=== PATIENT | female | born 1980 | race American Indian/Alaskan Native ===

== ENCOUNTER 2018-02-20 08:30 | Emergency (ER) | payer SELFPAY ==
[2018-02-20 08:33] VITALS: BP 127/75; PULSE 90; RESP 16; TEMP 37; O2SAT 99
--- NOTE | 2018-02-20 08:49 | W.ED.GENAD ---
Discharge Plan Disposition Patient Disposition: HOME Condition: Good Discharge Details Chief Complaint: Abd Prob Clinical Impression: URI (upper respiratory infection) Primary Care Provider: None,None ED Provider: Lee Shay Home Meds and New Rx's Prescriptions: No Action No Known Home Meds RF: 0 Discharge Instructions Instructions: Upper Respiratory Infection (ED) Stand Alone Forms: Work Release Referrals: [facility] [place] [facility] [Outside] - Return if symptoms worsen Discharge Data Discharge Date/Time-TO BE ENTERED AT DEPARTURE: 02/20/18 09:00 Medical Decision Making Offered to do chest x-ray and flu swab and she declined. Advised to continue rest and fluids and return if symptoms worsen otherwise with pcp. Return to work note provided to return on 02/23/18. HPI General Mode of arrival: ambulatory. Date/Time Provider Initiated Documentation: 02/20/18 08:35. Limitations to Documentation: no limitations. Information obtained by: patient. History of Present Illness 37 year old F presents to the emergency department with the chief complaint of cough and diarrhea, HPI Narrative: 37 y/o female here with c/o cough, diarrhea, and sinus congestion. She is a smoker but unable to smoke during this illness. She tells me she has a cold and treating with homeopathic medications. She also c/o lower abdominal pain with the diarrhea. Denies back pain, N/V or fever. She works in the kitchen at [employer]. She missed work yesterday and her boss told her to come in and get a work note. She explains that she typically does not like coming to the doctor but needs a work note. Transportation is an issue. Her sister brought her in on her way out of town to return back to [place]. She declines any testing to confirm the flu or any other possible cause of her illness. She does need a work note though. Related Data Home Medications Medication Instructions Recorded Confirmed Unknown [No Known Home Meds] 02/20/18 02/20/18 Allergies Allergy/AdvReac Type Severity Reaction Status Date / Time shrimp Allergy Unverified 02/20/18 08:39 something for mental health Allergy Itching Uncoded 02/20/18 08:39 General Stated Complaint: Abd Prob CYRUS: 4 Review of Systems Eyes Reports system reviewed and no additional complaints, except as docu ENT Reports nasal congestion, Reports nasal discharge, Reports sinus pressure and Reports sore throat Cardiovascular Reports system reviewed and no additional complaints, except as docu Respiratory Reports cough Gastrointestinal Reports abdominal pain and Reports diarrhea Genitourinary Reports system reviewed and no additional complaints, except as [facility] Musculoskeletal Reports system reviewed and no additional complaints, except as [facility] Integumentary/Breasts Reports system reviewed and no additional complaints, except as docu PFSH Social History Smoking/Tobacco Use Status: Current every day Social History Smoking/Tobacco Use Status: Current every day Exam Const General: cooperative, comfortable and no acute distress Nutritional Appearance: overweight Orientation: alert, awake and oriented x3 HENMT Head: atraumatic Ears: hearing grossly normal bilaterally, external ears normal, TM normal on the right and TM abnormal (left) erythematous General nose exam: external nose normal and nares normal Mouth: oral mucosae normal, lip normal and tongue normal Teeth and gingiva: dentition normal Throat: posterior oropharynx abnormal erythema and exudates Eyes General: appearance normal, both eyes and all related structures Neck Neck: normal visual inspection, full ROM and no lymphadenopathy Resp Effort & Inspection: normal respiratory effort Auscultation: clear to auscultation bilaterally Cardio Rate: regular rate Rhythm: regular rhythm Heart Sounds: S1 normal, S2 normal and no murmurs GI Palpation: soft, no guarding and tender in the LLQ, in the RLQ and in the LUQ; not in the epigastrum, not at McBurney's point, not suprapubicly, Diana's sign negative and with no rebound tenderness Auscultation: normoactive bowel sounds Skin General skin exam: no rashes or lesions noted Neuro General: alert, awake, oriented x3 and gait normal Extrem General: full ROM and normal capillary refill Course Vital Signs Temperature 37 C 02/20/18 08:33 Pulse 90 02/20/18 08:33 Respiratory Rate 16 02/20/18 08:33 Blood Pressure 127/75 02/20/18 08:33 Pulse Oximetry 99 02/20/18 08:33 Temperature 37 C 02/20/18 08:33 Temperature Source Temporal Artery Scan 02/20/18 08:33 Pulse 90 02/20/18 08:33 Respiratory Rate 16 02/20/18 08:33 Respiratory Effort 02/20/18 08:40 Blood Pressure 127/75 02/20/18 08:33 Blood Pressure Position Sitting 02/20/18 08:33 Pulse Oximetry 99 02/20/18 08:33 Oxygen Delivery Method Room Air 02/20/18 08:33 Oxygen Flow Rate 0 02/20/18 08:33 Pain Level 0 02/20/18 08:33 Comment 02/20/18 08:33
--- NOTE | 2018-02-20 08:57 | ED.GENADUL_ITS ---
Discharge Plan Disposition Patient Disposition: HOME Condition: Good Discharge Details Chief Complaint: Abd Prob Clinical Impression: URI (upper respiratory infection) Primary Care Provider: None,None ED Provider: Lee Shay Home Meds and New Rx's Prescriptions: No Action No Known Home Meds RF: 0 Discharge Instructions Instructions: Upper Respiratory Infection (ED) Stand Alone Forms: Work Release Referrals: [facility] Emergency Dept. [Outside] - Return if symptoms worsen Discharge Data Discharge Date/Time-TO BE ENTERED AT DEPARTURE: 02/20/18 09:00 Medical Decision Making Offered to do chest x-ray and flu swab and she declined. Advised to continue rest and fluids and return if symptoms worsen otherwise with pcp. Return to work note provided to return on 02/23/18. HPI General Mode of arrival: ambulatory . Date/Time Provider Initiated Documentation: 02/20/18 08:35 . Limitations to Documentation: no limitations . Information obtained by: patient . History of Present Illness 37 year old F presents to the emergency department with the chief complaint of cough and diarrhea, HPI Narrative: 37 y/o female here with c/o cough, diarrhea, and sinus congestion. She is a smoker but unable to smoke during this illness. She tells me she has a cold and treating with homeopathic medications. She also c/o lower abdominal pain with the diarrhea. Denies back pain, N/V or fever. 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 She explains that she typically does not like coming to the doctor but needs a work note. Transportation is an issue. Her sister brought her in on her way out of town to return back to [place]. She declines any testing to confirm the flu or any other possible cause of her illness. She does need a work note though. Related Data Home Medications Medication Instructions Recorded Confirmed Unknown [No Known Home Meds] 02/20/18 02/20/18 Allergies Allergy/AdvReac Type Severity Reaction Status Date / Time shrimp Allergy Unverified 02/20/18 08:39 something for mental health Allergy Itching Uncoded 02/20/18 08:39 General Stated Complaint: Abd Prob CYRUS: 4 Review of Systems Eyes Reports system reviewed and no additional complaints, except as docu ENT Reports nasal congestion, Reports nasal discharge, Reports sinus pressure and Reports sore throat Cardiovascular Reports system reviewed and no additional complaints, except as docu Respiratory Reports cough Gastrointestinal Reports abdominal pain and Reports diarrhea Genitourinary Reports system reviewed and no additional complaints, except as [facility] Musculoskeletal Reports system reviewed and no additional complaints, except as [facility] Integumentary/Breasts Reports system reviewed and no additional complaints, except as docu PFSH Social History Smoking/Tobacco Use Status: Current every day Social History Smoking/Tobacco Use Status: Current every day Exam Const General: cooperative, comfortable and no acute distress Nutritional Appearance: overweight Orientation: alert, awake and oriented x3 HENMT Head: atraumatic Ears: hearing grossly normal bilaterally, external ears normal, TM normal on the right and TM abnormal (left) erythematous General nose exam: external nose normal and nares normal Mouth: oral mucosae normal, lip normal and tongue normal Teeth and gingiva: dentition normal Throat: posterior oropharynx abnormal erythema and exudates Eyes General: appearance normal, both eyes and all related structures Neck Neck: normal visual inspection, full ROM and no lymphadenopathy Resp Effort & Inspection: normal respiratory effort Auscultation: clear to auscultation bilaterally Cardio Rate: regular rate Rhythm: regular rhythm Heart Sounds: S1 normal, S2 normal and no murmurs GI Palpation: soft, no guarding and tender in the LLQ, in the RLQ and in the LUQ; not in the epigastrum, not at McBurney's point, not suprapubicly, Diana's sign negative and with no rebound tenderness Auscultation: normoactive bowel sounds Skin General skin exam: no rashes or lesions noted Neuro General: alert, awake, oriented x3 and gait normal Extrem General: full ROM and normal capillary refill Course Vital Signs Temperature 37 C 02/20/18 08:33 Pulse 90 02/20/18 08:33 Respiratory Rate 16 02/20/18 08:33 Blood Pressure 127/75 02/20/18 08:33 Pulse Oximetry 99 02/20/18 08:33 Temperature 37 C 02/20/18 08:33 Temperature Source Temporal Artery Scan 02/20/18 08:33 Pulse 90 02/20/18 08:33 Respiratory Rate 16 02/20/18 08:33 Respiratory Effort 02/20/18 08:40 Blood Pressure 127/75 02/20/18 08:33 Blood Pressure Position Sitting 02/20/18 08:33 Pulse Oximetry 99 02/20/18 08:33 Oxygen Delivery Method Room Air 02/20/18 08:33 Oxygen Flow Rate 0 02/20/18 08:33 Pain Level 0 02/20/18 08:33 Comment 02/20/18 08:33
== END 2018-02-20 09:00 | disposition home or self-care (01) ==
LOC: ER 09:10
PROVIDERS: Emergency Provider Nurse Practitioner Family
DX: J06.9 Acute upper respiratory infection, unspecified (principal); R19.7 Diarrhea, unspecified; F17.210 Nicotine dependence, cigarettes, uncomplicated
CPT/HCPCS: 99282

== ENCOUNTER 2018-03-24 09:13 | Emergency (ER) | payer SELFPAY ==
[2018-03-24 09:24] VITALS: BP 115/76; PULSE 82; RESP 16; TEMP 36.6; O2SAT 98
--- NOTE | 2018-03-24 09:43 | DI.RAD_ITS ---
SYMPTOMS/DIAGNOSIS: COUGH FOR 1 MONTH, PRODUCTIVE YELLOW SPUTUM PA AND LATERAL CHEST: The cardiac and mediastinal contours have a normal appearance. The lungs are well inflated and clear. No infiltrate or effusion is seen. IMPRESSION: Negative chest x-ray.
[2018-03-24 09:59] LABS: Bilirubin Negative (Negative); Blood Negative (Negative); Clarity Clear; Glucose Negative (Negative); Ketones Negative (Negative); Leukocyte Esterase Negative (Negative); Nitrite Negative (Negative); Urobilinogen 0.2 EU/dL (Up TO 0.2); pH 6.5 (5-8)
--- NOTE | 2018-03-24 09:59 | W.ED.GENAD ---
Discharge Plan Disposition Patient Disposition: HOME Condition: Good Discharge Details Chief Complaint: Nausea/Vomit/Diar Clinical Impression: Bronchitis Primary Care Provider: None,None ED Provider: Wally Mccray Home Meds and New Rx's Prescriptions: New prednisone 50 MG tablet 50 mg PO DAILY Qty: 5 RF: 0 azithromycin 250 mg tablet See Rx Instructions .ROUTE .COMPLEX Qty: 6 RF: 0 albuterol sulfate 90 mcg/actuation HFA aerosol inhaler 1 puff IH Q6H PRN (Reason: shortness of breath or wheezing) Qty: 8 RF: 0 Discharge Instructions Instructions: Acute Bronchitis (ED) Additional Instructions: Please take medications as directed. If you notice any worsening of your symptoms, or any new symptoms such as vomiting, diarrhea, fever, chills, shortness of breath, chest pain, numbness, weakness, or fainting , please return immediately to the emergency department for reevaluation. Please follow up with your primary care provider as soon as possible for reassessment and reevaluation. As always, it was a pleasure participating in your medical care today. Medical Decision Making This is a pleasant 37-year-old female who presents for evaluation of cough with on and off symptoms for the last month with some associated diarrhea, and productive yellow sputum. She denies fever but does admit to chills. She still smokes. Lung sounds demonstrate wheeze on the left. The longevity of the patient's symptoms, I am concerned for potential pneumonia we will get a chest x-ray for further evaluation. No severe focal pneumonia on chest x-ray. Patient will be discharged home with steroids, albuterol, and antibiotics for chronic recurrent bronchitis. I have extensively reviewed the treatment plan and discharge instructions with the patient. I have addressed all patient concerns at this time. The patient was made aware of what symptoms to monitor for that would warrant a return to the emergency department. Discussed the plan with the patient, they demonstrate verbal understanding and agreement with our assessment and plan at this time. HPI General Date/Time Provider Initiated Documentation: 03/24/18 09:40. HPI Narrative: This is a 37-year-old female who presents today for evaluation of cough, congestion, and occasional loose stool. Patient states that for the last month she has had on and off return of the symptoms. She has associated yellow sputum with her cough. Her diarrhea is nonbloody and only occasional. She denies any dark tarry or melanotic stool. She denies any hematemesis, hematochezia. Patient is continuing to smoke. She denies any chest pain or shortness of breath. She is a lesbian she denies any intercourse or oral contraceptive use. Patient denies any contact with water towers or air conditioning units. She has no other associated complaints at this time. Patient denies any other modifying factors. She has no other complaints at this time. Related Data Home Medications Medication Instructions Recorded Confirmed albuterol sulfate 1 puff IH Q6H PRN #8 gm 03/24/18 azithromycin See Rx Instructions .ROUTE 03/24/18 .COMPLEX #6 tab prednisone 50 mg PO DAILY #5 tab 03/24/18 Previous Rx's Medication Instructions Recorded albuterol sulfate 1 puff IH Q6H PRN #8 gm 03/24/18 azithromycin See Rx Instructions .ROUTE 03/24/18 .COMPLEX #6 tab prednisone 50 mg PO DAILY #5 tab 03/24/18 Allergies Allergy/AdvReac Type Severity Reaction Status Date / Time shrimp Allergy Unverified 03/24/18 09:30 something for mental health Allergy Itching Uncoded 03/24/18 09:30 General Stated Complaint: Nausea/Vomit/Diar CYRUS: 3 Review of Systems Review of Systems All systems reviewed & are unremarkable except as noted in HPI and below PFSH Social History Smoking/Tobacco Use Status: Current every day Exam Narrative Exam Narrative: 1.Const: Well-nourished, Well-developed, appearing stated age 2.Eyes: PERRL, no conjunctival injection, and symmetrical lids. 3.ENT: Atraumatic external nose and ears. Moist MM. Neck: Symmetric, trachea midline, No thyromegaly. 4.CVS: +S1/S2, No murmurs or gallops. Peripheral pulses 2+ and equal in all extremities. Brisk capillary refill in all extremities. 5.RESP: Unlabored respiratory effort. Clear to auscultation bilaterally. No significant rales or rhonchi, mild wheeze particularly on the left. 6.GI: Soft, Nontender/Nondistended, No hepatosplenomegaly. No guarding or rebound. No pain at McBurney's point, negative Diana sign. 7.MSK: Normocephalic/Atraumatic, Extremities w/o deformity or ttp No cyanosis or clubbing, Normal movement of all extremities. No calf tenderness. 8.Skin: Warm, Dry. No rashes or lesions. 9.Neuro: hand sewer shoes II-XII grossly intact. Sensation grossly intact, no focal neurologic deficits. 10.Psych: (AAO) x3. Appropriate mood and affect Course Vital Signs Temperature 36.6 C 03/24/18 09:24 Pulse 82 03/24/18 09:24 Respiratory Rate 16 03/24/18 09:24 Blood Pressure 115/76 03/24/18 09:24 Pulse Oximetry 98 03/24/18 09:24 Temperature 36.6 C 03/24/18 09:24 Temperature Source Skin 03/24/18 09:24 Pulse 82 03/24/18 09:24 Respiratory Rate 16 03/24/18 09:24 Blood Pressure 115/76 03/24/18 09:24 Blood Pressure Position Sitting 03/24/18 09:24 Pulse Oximetry 98 03/24/18 09:24 Oxygen Delivery Method Room Air 03/24/18 09:24 Oxygen Flow Rate 0 03/24/18 09:24 Pain Level 10 03/24/18 09:24 Lab/Test Results Lab/Test Results: POC- Test(urine) Negative
[2018-03-24] MEDS: Albuterol/Ipratropium 3 ML UPD VIAL UPD (10:06)
--- NOTE | 2018-03-24 10:53 | CMPROGNOTE_ITS ---
Care Management Progress Note 03/24-[employer] called and stated that Eli needed assistance with paying for scripts but she has to leave right now. Patient is in waiting area. Went out to see patient to refer to [facility] and patient had already left.
== END 2018-03-24 10:45 | disposition home or self-care (01) ==
PROVIDERS: Emergency Provider Student in an Organized Health Care Education/Training Program
DX: J42 Unspecified chronic bronchitis (principal); F17.210 Nicotine dependence, cigarettes, uncomplicated
CPT/HCPCS: 81025; 94640; 99284; 71046; 81003; J7620